=== PATIENT | female | born 1995 | race African-American/Black ===

== ENCOUNTER 2022-12-18 20:49 | Emergency (ER) | payer OTHER ==
[~2022-12-18] VITALS: Ht 160 cm; Wt 65.0 kg
[2022-12-18] MEDS ORDERED: IBUPROFEN 600MG TABLET PO ONE (21:15)
[2022-12-19] MEDS ORDERED: IBUP-2029 MT (00:59)
[2022-12-19] MEDS ORDERED: CYCL10TA21 MT (00:59)
[2022-12-19 01:19] VITALS: BP 124/74
== END 2022-12-19 01:25 | disposition home or self-care (01) ==
LOC: ER 20:49
DX: S30.1XXA Contusion of abdominal wall, initial encounter (principal); S40.012A Contusion of left shoulder, initial encounter; V49.49XA Driver injured in collision with other motor vehicles in traffic accident, initial encounter; Y93.89 Activity, other specified; Y92.89 Other specified places as the place of occurrence of the external cause; Y99.8 Other external cause status
CPT/HCPCS: 71045; 73030; 74018; 81025; 99284